=== PATIENT | female | born 1960 | race Caucasian/White ===

== ENCOUNTER → 2016-06-17 | Outpatient (CLI) | payer OTHER ==
[~2016-06-17] MED LIST: AMLODIPINE-VAL1 EAC1 PO; ASPIRIN81 MG PO; BACLOFEN10 MG PO; BEE POLLEN550 MG PO; CALCIUM + D 6001 TA1 PO; CALCIUM 600 + D1 TA1 PO; CARVEDILOL3.125 MG PO; CELLCEPT500 MG PO; CLARITIN10 M2 PO; CLARITIN10 M3 PO; COREG3.125 MG PO; COUMADIN5 MG PO; EXFORGE 10-1601 TAB PO; FLONASE ALLERG9.9 ML; HECORIA1 MG PO; KEPPRA500 M2 PO; KEPPRA500 MG PO; LASIX20 MG PO; LIORESAL10 MG PO; LOVENOX80 MG/0.8 INJ; MYCOPHENOLATE500 MG PO; PAROXETINE HCL20 MG PO; PAXIL PO; PREDNISONE10 MG PO; SIMVASTATIN10 MG PO; SIMVASTATIN20 MG PO; TACROLIMUS1 MG PO
[2016-06-17 17:38] LABS: HEMATOCRIT 40.5 % (35.0-45.0); HEMOGLOBIN 12.9 gm/dL (12.0-16.0); MEAN CELL VOLUME 93.9 FL (83-96); MEAN CORPUSCULAR HEMOGLOBIN 29.8 PG (28-34); MEAN CORPUSCULAR HGB CONC 31.8 g/dL (30-36); MEAN PLATELET VOLUME 7.7 FL (6.5-11.5); RED BLOOD COUNT 4.31 X10e (3.90-5.30); RED CELL DISTRIBUTION WIDTH 14.3 % (11.0-15.5); WHITE BLOOD COUNT 11.4 X10e3 (4.0-10.5)
[2016-06-17 18:23] LABS: ALBUMIN SERUM 4.2 g/dL (3.5-5.0); BILIRUBIN,TOTAL 0.5 mg/dL (0.2-2.0); BUN/CREATININE RATIO 32.22; CALCIUM SERUM 9.3 mg/dL (8.4-10.2); CREATININE SERUM 0.9 mg/dL (0.6-1.4); GLOM FILT RATE Estimated 71.5 mL/min (>60); POTASSIUM 4.5 mmol/L (3.5-5.1); PROTEIN TOTAL SERUM 6.8 g/dL (6.0-8.3)
== END | disposition home or self-care (01) ==
LOC: CLAB 16:40
PROVIDERS: Internal Medicine
DX: Z48.22 Encounter for aftercare following kidney transplant (principal); Z94.0 Kidney transplant status
CPT/HCPCS: 80053; 80197; 85027

== ENCOUNTER → 2016-06-24 | Outpatient (CLI) | payer OTHER ==
--- NOTE | ~2016-06-24 | MY11 ---
[facility] A Service of [facility] RADIOLOGY TEXT RESULTS PATIENT: ALICIA SALINAS LOCATION: [facility] : 58 UNIT #: [id number] AGE: [address]: Renetta Lewis MD SEX: F ORDER DR: [id number] [facility] [address] [place], [place] [address] [id number] O MR#: [id number] Acc #: [id number] NAME: ALICIA SALINAS : 1960 SEX: F STUDY DATE/TIME: 06/24/2016 16:21 UNIT: [facility] ROOM: STUDY DESCRIPTION: MY Mammogram Screening Dig Julián Attending Physician: Renetta Lewis M.D. Ordering Physician: Renetta Lewis M.D. Primary Care Physician: Renetta Lewis M.D. MEDICAL IMAGING REPORT This report is preliminary unless electronic signature is present EXAM Bilateral digital screening mammogram with CARD device, 06/24/2016 HISTORY Routine screening. FINDINGS Digital imaging of each breast was completed utilizing standard craniocaudal and mediolateral-oblique projections. Review and interpretation of digital mammograms include a second review in conjunction with FDA-approved CAD device. There is an overall increase in the parenchymal presentation bilaterally with a generalized fibronodular pattern in each breast. There are no breast masses and I see no asymmetry in the parenchymal presentation. There are no suspicious microcalcifications and I see no architectural disturbance. IMPRESSION Benign mammogram. One-year followup recommended. Patients over the age of 40 are entered into a reminder system with target due date for the next mammogram. A result letter will also be sent to the patient. BIRADS: 2 Benign finding Dictated by... Jnoathan Sharma M.D. THIS IS AN ELECTRONICALLY VERIFIED REPORT Jonathan Sharma M.D. at 06/25/2016 7:47 AM NASIR/[employer] A Service of [facility] RADIOLOGY TEXT RESULTS PATIENT: ALICIA SALINAS LOCATION: [facility] : 58 UNIT #: [id number] AGE: [address]: Renetta Lewis MD SEX: F ORDER DR: TD: 06/24/2016 20:27 JOB #: [id number] MEDICAL IMAGING REPORT Page 1 of 1 COPY
== END | disposition home or self-care (01) ==
LOC: CWCC 15:20
DX: Z12.31 Encounter for screening mammogram for malignant neoplasm of breast (principal)
CPT/HCPCS: G0202

== ENCOUNTER → 2016-11-28 | Outpatient (CLI) | payer OTHER ==
[2016-11-28 16:53] LABS: HEMOGLOBIN 14.7 gm/dL (12.0-16.0); MEAN CELL VOLUME 95.7 FL (83-96); MEAN CORPUSCULAR HEMOGLOBIN 30.5 PG (28-34); MEAN CORPUSCULAR HGB CONC 31.9 g/dL (30-36); MEAN PLATELET VOLUME 7.4 FL (6.5-11.5); RED BLOOD COUNT 4.8 X10e (3.90-5.30); RED CELL DISTRIBUTION WIDTH 14.3 % (11.0-15.5); WHITE BLOOD COUNT 9.6 X10e3 (4.0-10.5)
[2016-11-28 17:37] LABS: BUN/CREATININE RATIO 33.75; CALCIUM SERUM 9.5 mg/dL (8.4-10.2); CREATININE SERUM 0.8 mg/dL (0.6-1.4); GLOM FILT RATE Estimated 81.9 mL/min (>60); PHOSPHOROUS 3.1 mg/dL (2.5-4.6); POTASSIUM 4.5 mmol/L (3.5-5.1); URIC ACID 4.3 mg/dL (2.6-7.2)
[2016-12-01 23:58] LABS: CALCIUM (PTHINTACT) 9.7 mg/dL (8.6-10.4)
== END | disposition home or self-care (01) ==
LOC: CLAB 16:17
PROVIDERS: Internal Medicine
DX: I12.9 Hypertensive chronic kidney disease with stage 1 through stage 4 chronic kidney disease, or unspecified chronic kidney disease (principal); N18.3 Chronic kidney disease, stage 3 (moderate); E55.9 Vitamin D deficiency, unspecified
CPT/HCPCS: 80048; 82306; 82310; 83970; 84100; 84550; 85027